=== PATIENT | male | born 1945 | race Caucasian/White ===

== ENCOUNTER 2017-05-24 08:15 | Outpatient (CLI) | payer MEDICARE, SELFPAY ==
[2017-05-24 08:28] VITALS: BMI 30.5
[2017-05-24 09:09] LABS: Alanine Aminotransferase 35 U/L (12-78); Albumin/Globulin Ratio 1.1 (1.1-1.8); Alkaline Phosphatase 50 U/L (46-116); Aspartate Amino Transferase 18 U/L (15-37); Bilirubin,Total 0.7 mg/dL (0.2-1.0); Blood Urea Nitrogen 13 mg/dL (7-18); Calcium 8.8 mg/dL (8.5-10.1); Carbon Dioxide 28 mmol/L (21.0-32.0); Chloride 102 mmol/L (98-107); Creatinine Clearance Estimated 68 mL/min (0-300); Creatinine,Serum 1.32 mg/dL (0.70-1.30); Estimated Glomerular Filt Rate 53 ml/min (>60); GFR (African American) 65 ML/MIN (>60); Globulin 3.6 gm/dl (1.3-3.2); Glucose 148 mg/dL (74-106); Sodium 137 mmol/L (136-145); Total Protein,Serum 7.6 gm/dL (6.4-8.2)
[2017-05-24 09:12] LABS: C-Reactive Protein < 0.2 mg/L (0.0-0.9)
[2017-05-24 10:00] LABS: Basophils % 0.8 % (0.1-2.0); Eosinophils # 0.2 K/mm3 (0.0-0.4); Eosinophils % 3.5 % (0.1-12.0); Hematocrit 45.3 % (42.0-52.0); Hemoglobin 15.9 g/dL (14.1-18.0); Lymphocytes # 0.9 K/mm3 (0.7-4.5); Lymphocytes % 16.4 K/mm3 (10-50); Mean Corpuscular HGB Conc 35.1 g/dL (31.8-35.4); Mean Corpuscular Hemoglobin 32.9 pg (27.0-31.2); Mean Corpuscular Volume 93.7 fl (80-94); Mean Platelet Volume 10.1 fl (7.4-10.4); Monocytes # 0.3 K/mm3 (0.1-1.0); Neutrophils # 3.9 K/mm3 (1.8-7.8); Neutrophils % 74.3 % (37.0-80.0); Platelet Count 118 K/mm3 (142-424); Red Blood Count 4.83 M/mm3 (4.60-6.20); Red Cell Distribution Width 14.7 % (11.5-17.5); White Blood Count 5.2 K/mm3 (4.8-10.8)
[2017-05-24 10:45] VITALS: BP 127/76; PULSE 68; RESP 20; TEMP 36.6; O2SAT 98
[2017-05-24 11:00] VITALS: BP 128/77; PULSE 67; RESP 20; O2SAT 99
[2017-05-24 11:15] VITALS: BP 127/79; PULSE 61; RESP 20; O2SAT 98
[2017-05-24 11:30] VITALS: BP 124/77; PULSE 67; RESP 20; TEMP 36.6; O2SAT 98
== END 2017-05-24 11:35 | disposition home or self-care (01) ==
LOC: INF 10:42
PROVIDERS: Family Provider Internal Medicine; Visit Provider Internal Medicine Gastroenterology
DX: K51.90 Ulcerative colitis, unspecified, without complications (principal)
CPT/HCPCS: 80053; 85025; 86140; 96413; J3380

== ENCOUNTER 2017-07-19 08:26 | Outpatient (CLI) | payer MEDICARE, SELFPAY ==
[2017-07-19 08:43] VITALS: BMI 30.2
[2017-07-19 08:55] LABS: Basophils % 0.9 % (0.1-2.0); Eosinophils # 0.1 K/mm3 (0.0-0.4); Eosinophils % 2.7 % (0.1-12.0); Hematocrit 50.2 % (42.0-52.0); Hemoglobin 17.3 g/dL (14.1-18.0); Lymphocytes # 1.1 K/mm3 (0.7-4.5); Lymphocytes % 23.5 K/mm3 (10-50); Mean Corpuscular HGB Conc 34.4 g/dL (31.8-35.4); Mean Corpuscular Hemoglobin 31.8 pg (27.0-31.2); Mean Corpuscular Volume 92.3 fl (80-94); Mean Platelet Volume 10.4 fl (7.4-10.4); Monocytes # 0.3 K/mm3 (0.1-1.0); Monocytes % 6.6 % (1.7-9.3); Neutrophils % 66.4 % (37.0-80.0); Platelet Count 107 K/mm3 (142-424); Red Blood Count 5.44 M/mm3 (4.60-6.20); Red Cell Distribution Width 13.3 % (11.5-17.5); White Blood Count 4.5 K/mm3 (4.8-10.8)
[2017-07-19 09:08] LABS: Alanine Aminotransferase 54 U/L (12-78); Albumin Level 3.8 gm/dL (3.4-5.0); Alkaline Phosphatase 57 U/L (46-116); Anion Gap 13.9 mEq/L (5-15); Aspartate Amino Transferase 19 U/L (15-37); Bilirubin,Total 0.7 mg/dL (0.2-1.0); Blood Urea Nitrogen 15 mg/dL (7-18); Carbon Dioxide 25 mmol/L (21.0-32.0); Chloride 103 mmol/L (98-107); Creatinine Clearance Estimated 72 mL/min (0-300); Creatinine,Serum 1.23 mg/dL (0.70-1.30); Estimated Glomerular Filt Rate 58 ml/min (>60); GFR (African American) 70 ML/MIN (>60); Globulin 3.9 gm/dl (1.3-3.2); Glucose 198 mg/dL (74-106); Potassium 3.9 mmoL/L (3.5-5.1); Sodium 138 mmol/L (136-145); Total Protein,Serum 7.7 gm/dL (6.4-8.2)
[2017-07-19 09:09] LABS: C-Reactive Protein < 0.2 mg/L (0.0-0.9)
[2017-07-19 09:39] VITALS: BP 131/80; PULSE 66; RESP 18; TEMP 36.6; O2SAT 97
[2017-07-19 09:54] VITALS: BP 133/76; PULSE 68; RESP 18; O2SAT 96
[2017-07-19 10:09] VITALS: BP 130/79; PULSE 67; RESP 18; O2SAT 97
[2017-07-19 10:20] VITALS: BP 129/75; PULSE 69; RESP 18; O2SAT 96
== END 2017-07-19 10:25 | disposition home or self-care (01) ==
LOC: INF 08:26
PROVIDERS: Family Provider Internal Medicine; Visit Provider Internal Medicine Gastroenterology
DX: K51.912 Ulcerative colitis, unspecified with intestinal obstruction (principal)
CPT/HCPCS: 80053; 85025; 86140; 96413; J3380